=== PATIENT | male | born 1975 | race Caucasian/White ===

== ENCOUNTER 2016-06-01 14:59 | Emergency (ER) | payer MEDICARE ==
[2016-06-01 15:43] LABS: BASOPHIL 0.6 % (0-2); EOSINOPHIL 1.1 % (0-5); HCT 43.7 % (42.0-52.0); HGB 15.1 g/dl (13.2-18.0); LYMPHOCYTE 34.2 % (15-48); MCH 29.2 pg (25.0-31.0); MCHC 34.6 g/dL (32.0-36.0); MCV 84.4 fL (78.0-100.0); MONOCYTE 7.1 % (0-12); MPV 10.4 fL (6.0-9.5); PLT 204 K/uL (150-400); RBC 5.18 M/uL (4.70-6.00); RDW 13.7 % (11.5-14.0); WBC 6.4 K/uL (4.0-10.5)
[2016-06-01 15:58] LABS: CREATININE 1.3 mg/dL (0.7-1.2); POTASSIUM 3.8 mmol/L (3.5-5.1)
== END 2016-06-01 16:44 | disposition home or self-care (01) ==
LOC: FER 14:59
PROVIDERS: Emergency Medicine
DX: J45.901 Unspecified asthma with (acute) exacerbation (principal); I10 Essential (primary) hypertension; F17.210 Nicotine dependence, cigarettes, uncomplicated
CPT/HCPCS: 36415; 71010; 80048; 84484; 85025; 93005; 94640

== ENCOUNTER → 2020-07-06 | Day surgery (SDC) | payer MEDICARE, OTHER ==
[~2020-07-06] VITALS: Ht 193 cm; Wt 119.7 kg
[~2020-07-06] MED LIST: ASPIRIN325 MG PO; LEXAPRO20 MG PO; MEDROL 4MG DOSEP4 MG PO; PERCOCET 5-3251 EACH PO; PROZAC20 MG PO; SERTRALINE HCL50 MG PO; VOLTAREN **OUT75 MG PO; WELLBUTRIN75 MG PO
[2020-07-06 06:44] LABS: HCT 42.2 % (42.0-52.0); HGB 14.3 g/dl (13.2-18.0); MCH 28.7 pg (25.0-31.0); MCHC 33.9 g/dL (32.0-36.0); MCV 84.7 fL (78.0-100.0); MPV 10.5 fL (6.0-9.5); RBC 4.98 M/uL (4.70-6.00); RDW 14.1 % (11.5-14.0); WBC 8.8 K/uL (4.0-10.5)
[2020-07-06 07:07] LABS: ALBUMIN 3.3 g/dL (3.4-5.0); BILIRUBIN - TOTAL 0.5 mg/dL (0.2-1.0); BUN/CREAT RATIO (CALC) 11.9 RATIO; CREATININE 1.09 mg/dL (0.67-1.17); GLOBULIN (CALCULATION) 3.4 g/dL; POTASSIUM 4.5 mmol/L (3.5-5.1); TOTAL PROTEIN 6.7 g/dL (6.4-8.2)
== END | disposition home or self-care (01) ==
LOC: FAS 06:06
PROVIDERS: Anesthesiology
DX: S83.232A Complex tear of medial meniscus, current injury, left knee, initial encounter (principal); M17.12 Unilateral primary osteoarthritis, left knee; M25.862 Other specified joint disorders, left knee; E78.5 Hyperlipidemia, unspecified; G47.30 Sleep apnea, unspecified; F17.200 Nicotine dependence, unspecified, uncomplicated; Z99.89 Dependence on other enabling machines and devices; Z79.899 Other long term (current) drug therapy; X58.XXXA Exposure to other specified factors, initial encounter
CPT/HCPCS: 36415; 71045; 80053; 93005; J2250; J2704; J3010; J7120

== ENCOUNTER 2020-09-19 15:14 | Emergency (ER) | payer MEDICARE, OTHER ==
[~2020-09-19 15:14] MED LIST changes: -MEDROL 4MG DOSEP4 MG PO
== END 2020-09-19 16:00 | disposition home or self-care (01) ==
LOC: FER 15:14
DX: S06.0X9A Concussion with loss of consciousness of unspecified duration, initial encounter (principal); W17.89XA Other fall from one level to another, initial encounter; Y92.34 Swimming pool (public) as the place of occurrence of the external cause
CPT/HCPCS: 99283

== ENCOUNTER 2020-10-02 18:11 | Emergency (ER) | payer MEDICARE, OTHER ==
[2020-10-02] MEDS ORDERED: MEDROL 4MG DOSEP4 MG PO (20:49)
== END 2020-10-02 21:18 | disposition home or self-care (01) ==
LOC: FER 18:11
DX: M54.12 Radiculopathy, cervical region (principal); F17.210 Nicotine dependence, cigarettes, uncomplicated
CPT/HCPCS: 99283

== ENCOUNTER 2020-12-21 15:39 | Emergency (ER) | payer OTHER ==
[~2020-12-21 15:39] MED LIST changes: +MEDROL 4MG DOSEP4 MG PO
[2020-12-21] MEDS ORDERED: VENTOLIN HFA IN18 GM INH (17:11)
== END 2020-12-21 16:56 | disposition home or self-care (01) ==
LOC: FER 15:39
DX: J40 Bronchitis, not specified as acute or chronic (principal); F17.200 Nicotine dependence, unspecified, uncomplicated
CPT/HCPCS: 71046; 94640; 94664

== ENCOUNTER 2021-02-03 18:42 | Emergency (ER) | payer OTHER ==
[~2021-02-03 18:42] MED LIST changes: +VENTOLIN HFA IN18 GM INH
[2021-02-03] MEDS ORDERED: CYCLOBENZAPRINE10 MG PO (20:33)
== END 2021-02-03 20:45 | disposition home or self-care (01) ==
LOC: FER 18:42
DX: S13.4XXA Sprain of ligaments of cervical spine, initial encounter (principal); V49.40XA Driver injured in collision with unspecified motor vehicles in traffic accident, initial encounter; Y92.410 Unspecified street and highway as the place of occurrence of the external cause
CPT/HCPCS: 70450; 72125